=== PATIENT | male | born 1995 | race Caucasian/White ===

== ENCOUNTER 2022-10-23 00:05 | Emergency (ER) | payer OTHER ==
[2022-10-23] MEDS ORDERED: Ketorolac Tromethamine 30 MG/ML VIAL ONE (00:43)
== END 2022-10-23 00:57 | disposition home or self-care (01) ==
LOC: ERS 00:05
DX: K08.89 Other specified disorders of teeth and supporting structures (principal)
CPT/HCPCS: 96372; 99282; J1885

== ENCOUNTER 2022-10-28 22:36 | Emergency (ER) | payer OTHER ==
[2022-10-29] MEDS ORDERED: HYDROcodone/Acetaminophen 10/325 mg Tablet ONE (00:42)
== END 2022-10-29 00:57 | disposition home or self-care (01) ==
LOC: ERS 22:36
DX: K08.89 Other specified disorders of teeth and supporting structures (principal)
CPT/HCPCS: 99282

== ENCOUNTER 2023-02-17 22:12 | Emergency (ER) | payer BC, OTHER ==
[2023-02-17] MEDS ORDERED: Ibuprofen 800 MG TAB ONE (22:27)
[2023-02-17] MEDS ORDERED: Acetaminophen 500 MG TAB ONE (22:27)
[2023-02-18 00:10] LABS: SARS-CoV-2 NAA Rapid Test DETECTED (NotDetected)
== END 2023-02-18 00:45 | disposition home or self-care (01) ==
LOC: ERS 22:12
DX: U07.1 COVID-19 (principal); F17.290 Nicotine dependence, other tobacco product, uncomplicated
CPT/HCPCS: 87081; 87430; 99284